=== PATIENT | female | born 1945 | race Caucasian/White ===

== ENCOUNTER 2016-06-22 09:04 | Emergency (ER) | payer MEDICARE, BC ==
[2016-06-22] MEDS ORDERED: ASPIRIN 81 MG TAB.CHEW PO ONE (10:24)
--- OUTSIDE RECORDS SUMMARY | 2016-06-22 10:28 | XMS REPORT | Continuity of Care Document ---
:1945 Author Organization [facility] ([facility]) Address [address] [place] [address] Phone [phone] Care Team Providers Name Role Phone [phone], Need To Check Primary Care Provider Unavailable Source Comments This disclosure is being made pursuant to the Care Everywhere program, applicable federal and state laws, and may not contain all informaitonavailable regarding this patient.[facility] ([facility]) Active Allergies and Adverse Reactions Not on File Current Medications Not on file Active Problems Not on file Social History Tobacco Use Types Packs/Day Years Used Date Never Assessed Plan of Care Health Maintenance Due Date Last Done Comments HCV Screening 1945 Hepatitis B Vaccine (1 of 3 - Primary Series) 1945 Tdap Vaccine 10/31/1958 Lipid Disorder Screening 10/31/1965 Td Vaccine 10/31/1965 Mammogram 1987 Colonoscopy 10/31/1997 Zoster Vaccine 2007 Osteoporosis Screening (DXA Bone Density) 10/31/2012 Pneumococcal Vaccine (1 of 2 - PCV13) 10/31/2012 Influenza Vaccine: Seasonal (#1) 10/26/2015 Results from Last 3 Months Not on file
[2016-06-22] MEDS ORDERED: MAG HYDROX/ALUMINUM HYD/SIMETH 30 ML UDC PO ONE (10:31)
[2016-06-22] MEDS ORDERED: LIDOCAINE HCL 20 ML UDC PO ONE (10:31)
[2016-06-22] MEDS ORDERED: SUCRALFATE 1 G/10 ML UDC PO ONE (10:31)
--- NOTE | 2016-06-22 10:31 | ERNOTE ---
Medical Problem HPI - Narrative Date of Service: 06/22/16 - General Chief Complaint: General Assessment Time Seen by Provider: 06/22/16 10:12 - Immun/Allergies/Home Medications Immunizations: IMMUNIZATION HX Immunizations Up to Date Yes History of Influenza Vaccine Yes Hx Pneumococcal Vaccination No Allergies/Adverse Reactions: Allergies No Known Allergies Allergy (Unverified 06/22/16 09:13) Home Medications: HOME MEDICATIONS Aspirin [Aspirin Chewable] 81 mg PO DAILY 06/22/16 [Last Taken Unknown] Enalapril Maleate [Vasotec] 10 mg PO DAILY 06/22/16 [Last Taken Unknown] Levothyroxine Sodium [Levoxyl] 75 mcg PO DAILY 06/22/16 [Last Taken Unknown] - History of Present History Narrative: Pt. comes in with c/o high blood pressure when she went for her scheduled Stress test this morning. Pt. states that upon arrival that her blood pressure was 230/100. Pt. has a hx of HTN and she had not taken her Lisinopril this am. Pt. was getting the stress test due to mid scapular back pain and states that recently she has also experienced chest fullness but denies any pain, SOB, NVD, fever, recent illness, or edema. Pt. denies any alleviating or aggravating factors. Review of Systems - Review of Systems Constitutional: Present: no symptoms reported. Absent: recent illness, fever, chills, weakness, fatigue, malaise EYE: Present: no symptoms reported ENT: Present: no symptoms reported Respiratory: Present: no symptoms reported. Absent: shortness of breath, cough , wheezing Cardiology: Present: chest pain - fullness not pain according to pt.. Absent: palpitations, edema Gastrointestinal/Abdominal: Present: no symptoms reported. Absent: nausea, vomiting, diarrhea Musculoskeletal: Present: back pain - midscapular historical not current Skin: Present: no symptoms reported. Absent: rash, change in color Neurological: Present: no symptoms reported. Absent: headache, dizziness/light- headedness, numbness, tingling All Other Systems: All systems neg except as marked - Patient's Past Medical History Patient History - Medical: Hypothyroidism Patient History - Cardiac/Respiratory: Hypertension Patient History - Cancer: No Hx of Cancer Patient History - Surgical Procedures: Tubal Ligation - Social History Smoking Status: Never smoker Have you smoked in the past 12 months: No - Immunizations Immunizations Up to Date: Yes Hx Pneumococcal Vaccination: No History of Influenza Vaccine: Yes Physical Exam - Physical Exam General Appearance: Present: wd/wn, alert, no apparent distress Eye Exam: Normal inspection: bilateral, PERRL: bilateral, EOMI: bilateral Ears, Nose, Throat: Present: normal ENT inspection Neck: Present: normal inspection, nontender. Absent: lymphadenopathy (R), lymphadenopathy (L) Respiratory: Present: no respiratory distress, normal breath sounds, no accessory muscle use, chest nontender, lungs clear Cardiovascular/Chest: Present: regular rate, rhythm, no murmur, normal peripheral pulses Gastrointestinal/Abdominal: Present: normal bowel sounds, nontender, nondistended, soft, no organomegaly Back Exam: Present: normal inspection, normal range of motion, no CVA tenderness , no vertebral tenderness Extremity Exam: Present: normal inspection, non-tender, normal range of motion, no edema Neurological Exam: Present: alert, oriented, normal mood/affect, no motor/ sensory deficits Skin Exam: Present: normal color, warm/dry. Absent: pallor, skin rash ED Progress - Date and Time Seen: Date and Time: 06/22/16 12:13 Pt. rescheduled for stress test feel taht pt. is not likely having WA at this time. - Results and Orders Patient's Lab Results:: I have reviewed the patient's lab results. - Vital Signs Patient's Vital Signs:: I have reviewed the patient's vital signs. Vital Signs: Vital Signs 06/22/16 06/22/16 09:07 10:03 Temperature 37.5 C Pulse Rate 60 57 L Respiratory 15 18 Rate Blood Pressure 173/90 160/62 O2 Sat by Pulse 99 Oximetry - EKG EKG: other - Sinus yuri..no acute EKG read: Reviewed by me EKG Comments: Interpreted by Dr Rodriguez - X-Ray X-Ray #1 X-Ray: chest Interpretation: Reviewed by me X-ray Comments: No acute - Progress/Reassessment Chief Complaint: General Assessment Progress:: Unchanged Departure - Departure Clinical Impression: Chest wall pain HTN (hypertension) Qualifiers: Hypertension type: essential hypertension Qualified Code(s): I10 - Essential ( primary) hypertension Disposition: Home self-care Condition: Good Instructions: DASH Eating Plan, Hypertension, [id number], Managing Your High Blood Pressure Additional Instructions: Please follow up with Dr Paris in 2-3 days. Follow up for stress test... they will call you with appointment. Referrals: Nikunj Paris MD [Primary Care Provider] -
[2016-06-22] MEDS ORDERED: ASPIRIN 81 MG TAB.CHEW ONE (10:34)
[2016-06-22 10:47] LABS: Hematocrit 41.3 % (37.0-47.0); Hemoglobin 13.8 gm/dL (12.5-16.0); Mean Corpuscular Hemoglobin 30.1 pg (27-31); Mean Corpuscular Hgb Conc 33.4 g/dl (32-36); Mean Platelet Volume 10.9 fl (6.0-9.5); Neutrophil # 4.4 K/mm3 (1.3-6.0); Neutrophil % 70.3 % (42-75.0); Platelet Count 240 K/mm3 (150-450); Red Blood Count 4.59 M/mm3 (4.2-5.4); Red Cell Distribution Width 12.9 % (11.5-14.0); White Blood Count 6.3 K/mm3 (4.0-10.5)
[2016-06-22 10:58] LABS: Prothrombin Time (Patient) 10.8 Seconds (9.4-11.4)
[2016-06-22 10:59] LABS: INR 1.04 INR (0.90-1.10); Partial Thrombolplastin Time 27.2 Seconds (24-32)
[2016-06-22 11:06] LABS: ALT 32 U/L (19-67); AST 35 U/L (0-48); Albumin * 4.3 gm/dl (3.4-5.0); Alkaline Phosphatase * 99 U/L (50-170); Anion Gap 14.5 mmol/L (6.8-13.8); BUN/Creatinine Ratio 20.9 (9.0-21.6); Bilirubin, Total 0.4 mg/dL (0.0-1.1); Blood Urea Nitrogen 18 mg/dL (3-23); Ca. Corrected For Albumin 8.7 mg/dL (8.4-10.2); Calcium * 9.3 mg/dL (7.9-10.9); Carbon Dioxide 26.6 mmol/L (24-32.6); Chloride 107 mmol/L (97-106); Glucose * 99 mg/dL (70-110); Potassium 4.1 mmol/L (3.4-4.6); Sodium 144 mmol/L (132-142); Total Protein 8.2 gm/dL (6.2-8.2); Troponin I Less than 0.017 ng/ml (0.00-0.10)
[2016-06-22 12:05] VITALS: BP 142/56
== END 2016-06-22 12:29 | disposition home or self-care (01) ==
LOC: ER 09:04
DX: R07.89 Other chest pain (principal); I10 Essential (primary) hypertension; R00.1 Bradycardia, unspecified; E03.9 Hypothyroidism, unspecified